=== PATIENT | male | born 1995 | race Caucasian/White ===

== ENCOUNTER 2018-12-17 06:42 | Day surgery (SDC) | payer OTHER ==
[2018-12-17] MEDS ORDERED: LIDOCAINE 2% (SDV) 5 ML INJ (07:00)
[2018-12-17] MEDS ORDERED: PROPOFOL 200 MG INJ (07:00)
[2018-12-17] MEDS ORDERED: ONDANSETRON 4 MG INJ IV (13:30)
[2018-12-17] MEDS ORDERED: FENTAnyl 50 MCG/ML VIAL IV (13:30)
[2018-12-17] MEDS ORDERED: DIPHENHYDRAMINE 50 MG INJ IV (13:30)
[2018-12-17] MEDS ORDERED: MEPERIDINE 25 MG INJ IV (13:30)
[2018-12-17] MEDS ORDERED: OXYCODONE/ACETAMINOPHEN (5/325) TAB PO (13:30)
[2018-12-17] MEDS ORDERED: FENTAnyl 50 MCG/ML VIAL (13:41)
[2018-12-17] MEDS ORDERED: MIDAZOLAM 1 MG/ML 2 ML INJ (13:41)
[2018-12-17] MEDS ORDERED: CEFAZOLIN 1 GM INJ (13:54)
[2018-12-17] MEDS ORDERED: DEXAMETHASONE 4 MG/ML 5 ML INJ (13:55)
[2018-12-17] MEDS ORDERED: FAMOTIDINE 20 MG INJ (13:55)
[2018-12-17] MEDS ORDERED: ONDANSETRON 4 MG INJ (13:55)
[2018-12-17] MEDS: COCAINE 4% 4 ML TOP (14:04)
[2018-12-17] MEDS: LIDOCAINE 1%/EPI (1:100,000) (MDV) 20 ML (14:04)
[2018-12-17] MEDS: BACITRACIN/POLYMYXIN 28.35 GM OINT TOP (14:12)
[2018-12-17] MEDS ORDERED: GLYCOPYRROLATE 0.4 MG INJ ×2 (14:42→14:48)
[2018-12-17] MEDS ORDERED: NEOSTIGMINE 3 MG/3 ML SYRINGE ×2 (14:42→14:48)
[2018-12-17] MEDS: HYDROmorphONE 1 MG/5 ML IV SYRINGE IV ×3 (15:23→15:52)
[2018-12-17] MEDS ORDERED: METOCLOPRAMIDE 10 MG INJ IV (15:30)
[2018-12-17] MEDS: PROCHLORPERAZINE 10 MG INJ IV (15:32)
== END 2018-12-17 17:30 | disposition home or self-care (01) ==
LOC: SDS 06:42
DX: J34.2 Deviated nasal septum (principal); J34.3 Hypertrophy of nasal turbinates; J34.89 Other specified disorders of nose and nasal sinuses
CPT/HCPCS: 30140